=== PATIENT | female | born 1960 | race Caucasian/White ===

== ENCOUNTER 2021-05-22 19:57 | Emergency (ER) | payer MEDICARE, OTHER, SELFPAY ==
[2021-05-22 20:06] VITALS: BP 136/68; PULSE 125; RESP 22; TEMP 36.6; O2SAT 96; BMI 32.5
--- NOTE | 2021-05-22 20:12 | XRR_ITS ---
PROCEDURE INFORMATION: Exam: XR Chest Exam date and time: 05/22/2021 8:12 PM Age: 60 years old Clinical indication: Chest wall pain; Additional info: Cp TECHNIQUE: Imaging protocol: XR of the chest. Views: 1 view. COMPARISON: No relevant prior studies available. FINDINGS: Lungs: Unremarkable. No consolidation. Pleural spaces: Unremarkable. No pleural effusion. No pneumothorax. Heart/Mediastinum: Unremarkable. No cardiomegaly. Bones/joints: Unremarkable. XR/XR chest 1V portable [id number] IMPRESSION: No acute findings.
--- NOTE | 2021-05-22 20:12 | ECG_ITS ---
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 Measurements Intervals [place] Rate: 120 P: 35 NV: 169 QRS: 12 QRSD: 86 T: 31 QT: 315 QTc: 446 Interpretive Statements SINUS TACHYCARDIA LOW QRS VOLTAGE IN PRECORDIAL LEADS [QRS DEFLECTION < 1.0 mV IN CHEST LEADS] POSSIBLE INFERIOR MYOCARDIAL INFARCTION , OF INDETERMINATE AGE [30 ms Q WAVE IN II/aVF] No previous ECG available for comparison Electronically Signed On 05-23-2021 0:04:19 BOX MAKER by Sky Gupta M.D. [id number]
--- NOTE | 2021-05-22 20:31 | CTR_ITS ---
PROCEDURE INFORMATION: Exam: CT Head Without Contrast Exam date and time: 05/22/2021 8:31 PM Age: 60 years old Clinical indication: Numbness / parasthesia and speech disturbance; Left; Additional info: CVA TECHNIQUE: Imaging protocol: Computed tomography of the head without contrast. Radiation optimization: All CT scans at this facility use at least one of these dose optimization techniques: automated exposure control; mA and/or kV adjustment per patient size (includes targeted exams where dose is matched to clinical indication); or iterative reconstruction. COMPARISON: No relevant prior studies available. RADIATION DOSE METRICS: Total DLP (mGy-cm): 808.9 FINDINGS: Brain: Normal. No hemorrhage. Unremarkable white matter. No mass effect. Cerebral ventricles: No ventriculomegaly. Paranasal sinuses: Visualized sinuses are unremarkable. No fluid levels. Mastoid air cells: Visualized mastoid air cells are well aerated. Bones/joints: Unremarkable. No acute fracture. Soft tissues: Unremarkable. CT/CT head wo con* [id number] IMPRESSION: No acute intracranial abnormality.
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
[2021-05-22] MEDS: LORazepam 2 mg/mL INJ 1 mL 0.5 MG IVP (20:36)
[2021-05-22 20:41] VITALS: BP 158/105; PULSE 122; O2SAT 95
[2021-05-22 20:47] LABS: Basophils # 0.1 10^3/uL (0.0-0.1); Basophils % 1.2 %; Eosinophils # 0.1 10^3/uL (0.0-0.8); Eosinophils % 1.6 %; Hematocrit 49.3 % (37.0-47.0); Hemoglobin 16.2 g/dL (11.5-15.3); Lymphocytes # 2.9 10^3/uL (0.8-4.8); Lymphocytes % 39.3 %; Mean Corpuscular HGB Conc 32.9 g/dL (30.0-36.0); Mean Corpuscular Hemoglobin 28.8 pg (28.0-34.0); Mean Corpuscular Volume 87.6 fl (81-99); Mean Platelet Volume 8.8 fL (7.4-10.4); Monocytes # 0.5 10^3/uL (0.2-0.9); Monocytes % 7.4 %; Neutrophils # 3.66 10^3/uL (1.8-7.7); Neutrophils % 50.2 %; Nucleated Red Blood Cells % 0 %; Platelet Count 254 10^3/cmm (130-400); Red Blood Count 5.63 10^6/uL (4.1-5.3); Red Cell Distribution Width 12.3 % (12.1-15.1); White Blood Count 7.3 10^3/uL (4.0-10.0)
[2021-05-22 21:10] LABS: Alanine Aminotransferase 26 U/L (0-33); Albumin Level 4.4 g/dL (3.5-5.2); Alkaline Phosphatase 111 IU/L (35-105); Aspartate Amino Transferase 13 U/L (0-32); Blood Urea Nitrogen 13 mg/dL (6-20); Calcium 8.9 mg/dL (8.5-10.5); Carbon Dioxide 23 mmol/L (22-29); Chloride 95 mmol/L (98-107); Globulin 2.7 g/dL (1.3-4.6); Glomerular Filtration Rate 73.4 mL/min (90-130); Glucose 386 mg/dL (65-115); Osmolality Calculated 290 mOsm/kg (285-295); Sodium 132 mmol/L (136-145); Total Bilirubin 0.4 mg/dL (0.15-1.2); Total Protein 7.1 g/dL (6.6-8.7)
[2021-05-22 21:13] LABS: SARS Covid-2 Antigen Negative (Negative)
[2021-05-22 21:14] LABS: Troponin(5th) Baseline 7 ng/L (0-10)
[2021-05-22 21:26] VITALS: BP 154/89; PULSE 120; O2SAT 95
[2021-05-22 22:11] VITALS: BP 134/113; PULSE 112; O2SAT 95
--- NOTE | 2021-05-22 22:12 | ECG_ITS ---
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 Measurements Intervals [place] Rate: 108 P: 50 IA: 176 QRS: 20 QRSD: 90 T: 44 QT: 332 QTc: 447 Interpretive Statements SINUS TACHYCARDIA LOW QRS VOLTAGE IN PRECORDIAL LEADS [QRS DEFLECTION < 1.0 mV IN CHEST LEADS] ABNORMAL RHYTHM ECG Poor R wave progression Compared to ECG 05/22/2021 20:24:19 Myocardial infarct finding no longer present Electronically Signed On 05-23-2021 0:14:54 MAIL TELLER by Sky Gupta M.D. [id number] f
[2021-05-22 22:45] VITALS: BP 133/77; PULSE 113; O2SAT 92
[2021-05-22 22:58] LABS: Troponin 5 2HR 6.65 ng/L (0-10)
[2021-05-22] MEDS: LORazepam 2 mg/mL INJ 1 mL 1 MG IVP (23:11)
[2021-05-22 23:17] VITALS: BP 123/85; PULSE 100; O2SAT 94
== END 2021-05-22 23:19 | disposition home or self-care (01) ==
PROVIDERS: Emergency Provider Emergency Medicine; PCP Family Medicine
DX: R07.9 Chest pain, unspecified (principal); R20.2 Paresthesia of skin; Z20.822 Contact with and (suspected) exposure to COVID-19
CPT/HCPCS: 70450; 71045; 80053; 84484; 85025; 85610; 87426; 93005; 96374; 96376; 99284; J2060

== ENCOUNTER 2024-03-06 12:11 | Emergency (ER) | payer MEDICARE, SELFPAY ==
[2024-03-06 12:23] VITALS: BP 131/83; PULSE 87; RESP 16; TEMP 36.7; O2SAT 97; BMI 33.1
[2024-03-06 12:25] LABS: Glucose Point of Care 266 mg/dL (70-110)
[2024-03-06 12:55] LABS: Basophils # 0.1 10^3/uL (0.0-0.1); Basophils % 0.7 %; Eosinophils # 0.1 10^3/uL (0.0-0.8); Eosinophils % 1.5 %; Hematocrit 42.2 % (36-47); Lymphocytes # 2.2 10^3/uL (0.8-4.8); Lymphocytes % 32.7 %; Mean Corpuscular HGB Conc 32.9 g/dL (30-55); Mean Corpuscular Hemoglobin 28.6 pg (27-33); Mean Corpuscular Volume 86.8 fl (85-98); Mean Platelet Volume 8.6 fL (7.4-10.4); Monocytes # 0.5 10^3/uL (0.2-0.9); Neutrophils # 3.86 10^3/uL (1.8-7.7); Neutrophils % 57.7 %; Nucleated Red Blood Cells % 0 %; Platelet Count 187 10^3/cmm (157-399); Red Blood Count 4.86 10^6/uL (3.85-5.65); Red Cell Distribution Width 12.6 % (12.1-15.1)
[2024-03-06] MEDS: lactated ringers 1,000 ML 999 ML IV (13:04)
[2024-03-06 13:11] LABS: Alanine Aminotransferase 10 U/L (0-33); Alkaline Phosphatase 88 U/L (35-105); Anion Gap 16.3 (5-19); Aspartate Amino Transferase 12 U/L (0-32); Blood Urea Nitrogen 13 mg/dL (8-23); Calcium 8.2 mg/dL (8.5-10.5); Carbon Dioxide 20 mmol/L (22-29); Chloride 102 mmol/L (98-107); Creatinine Clr Calc Pharmacy 124.9335; Globulin 2.6 g/dL (1.3-4.6); Glucose 269 mg/dL (65-115); Lipase 26 U/L (13-60); Magnesium 1.9 mg/dL (1.7-2.3); Osmolality Calculated 288 mOsm/kg (285-295); Potassium 4.3 mmol/L (3.5-5.1); Sodium 134 mmol/L (136-145); Total Bilirubin 0.5 mg/dL (0.15-1.2); Total Protein 6.6 g/dL (6.6-8.7)
--- NOTE | 2024-03-06 13:11 | ED_ITS ---
HPI - General Adult 2 General: Chief complaint: Headache Stated complaint: 500 blood sugar, headache, generally unwell Time Seen by Provider: 03/06/24 12:38 Source: patient Mode of arrival: ambulatory Limitations: no limitations History of Present Illness: This patient makes her way to the Emergency Department because of elevated blood sugar. She has a history of recent diagnosis of diabetes this year. She is followed by endocrinology. She currently is taking Ozempic as well as Lantus. She states her blood sugar have been elevated and she is not quite sure what to do. She states they have been elevated in the past few days she called her endocrinology office who recommended increasing her Lantus by 2 units nightly and following her blood sugars. She did so last night and then took her Ozempic today but states that she still has considerable thirst and urinating all the time. She also just does not feel her normal energetic self and feels a bit out of sorts. She states she almost feels like she is getting some sort of a viral illness but his not been exposed to any illness that she is aware. She also states that she wonders if she might be getting a urinary tract infection. She does not have any other chronic illnesses and has no other constitutional complaints. She has had a previous tubal ligation as well as a cholecystectomy. Associated symptoms: Deny chest pain, dyspnea, nausea, rash, palpitations, syncope or vomiting Related Data Allergies Allergy/AdvReac Type Severity Reaction Status Date / Time Alpha-Gal Allergy ALGY-Anaphy Verified 03/06/24 12:23 (Fknyhnzbm-Etngs-3,3-Gala laxis Beef Containing Products Allergy ALGY-Anaphy Verified 03/06/24 12:23 laxis Pork/Porcine Containing Allergy ALGY-Anaphy Verified 03/06/24 12:23 Products laxis Review of Systems 2 Const: Denies: fever(s) or chills Eyes: Denies: change in vision ENMT: Denies: throat pain, odynophagia, nasal discharge or nasal congestion Card: Denies: chest pain, palpitations, irregular heart rhythm or syncope Resp: Denies: dyspnea, productive cough or non-productive cough GI: Denies: abdominal pain, nausea, vomiting or diarrhea : Reports: urinary frequency; Denies: flank pain, difficulty voiding or hematuria Musc: Denies: neck pain, back pain, extremity pain or extremity swelling Skin/Breast: Denies: rash or pruritus Neuro: Denies: numbness in extremities or weakness in extremities Psych: Denies: anxiety or depression Endo: Reports: polyuria and polydipsia Randal/Lymph: Denies: easy bruising Physical Exam 2 Narrative: EXAM NARRATIVE: She appears to be in no acute distress makes good eye contact her speech is fluent and answers questions in a goal-directed fashion. Const: COMMON NORMALS: no acute distress, average body habitus, patient oriented x3 and healthy appearing GENERAL APPEARANCE: cooperative N UTRITIONAL APPEARANCE: overweight ORIENTATION/CONSCIOUSNESS: Yes awake HENMT: COMMON NORMALS: normocephalic, Normal nasal mucous membranes and turbinates present, moist oral mucous membranes and oropharynx normal HEAD & SCALP: normocephalic NOSE: Normal nasal mucous membranes and turbinates present Eye: COMMON NORMALS: Equal, round and reactive pupils present, EOMs intact bilaterally and conjunctivae normal CONJUNCTIVA: Yes conjunctivae normal P UPIL: Yes Equal, round and reactive pupils present Neck/C-Spine: COMMON NORMALS: full ROM, no lymphadenopathy and no JVD Resp: COMMON NORMALS: normal respiratory effort, No retractions, No use of accessory muscles and clear to auscultation bilaterally AUSCULTATION: clear to auscultation bilaterally Cardio: COMMON NORMALS: no JVD, regular rate, regular rhythm, No murmurs present (Cardio) and Peripheral pulses 2+ throughout RATE: regular rate R HYTHM: regular rhythm PERIPHERAL PULSES: Peripheral pulses 2+ throughout GI: COMMON NORMALS: Normal to inspection, nondistended, normoactive bowel sounds present, Soft to palpation and non-tender PALPATION: Yes Soft to palpation : COMMON NORMALS: Yes no CVA tenderness BLADDER/KIDNEY EXAM: Yes no CVA tenderness Back/Pelvis: COMMON NORMALS: no CVA tenderness, thoracic and lumbar spine normal to inspection, no thoracic nor lumbar tenderness and thoraco-lumbar ROM normal Extremity: COMMON NORMALS: normal to inspection, full ROM and capillary refill normal Neuro: COMMON NORMALS: patient oriented x3, moves all extremities, no focal motor deficits and no sensory deficits noted CRANIAL NERVES: Yes CN normal except as noted Psych: COMMON NORMALS: mental status grossly normal Skin: COMMON NORMALS: no rashes or lesions noted, no wounds, turgor normal and no jaundice GENERAL SKIN EXAM: no rashes or lesions noted and turgor normal Course 2 Reevaluation(s): Reevaluation #1: The patient is doing well. She has received a liter of fluids vital signs are reassuring. Labs are noted the blood sugar is coming down into a range that is manageable at home and her current regimen. I discussed current findings or implications of both patient and spouse. She is stable at this time to be discharged with her current Lantus management and her Ozempic management. She also needs endocrinology follow-up as well as follow-up with a paraprofessional aide teacher to help her better understand her meal planning for her diabetes. Time: 14:14 Vital Signs: Vital signs: Vital Signs Temperature 98.0 F 03/06/24 12:23 Pulse Rate 87 03/06/24 12:23 Respiratory Rate 16 03/06/24 12:23 Blood Pressure 118/79 03/06/24 14:00 Pulse Oximetry 98 03/06/24 14:00 MDM - General Adult Medical Decision Making This patient presented to the Emergency Department because she was concerned about her blood sugar being elevated and did not know exactly how to approach taking care of that process. She had previously spoken with her endocrinology clinic and they had advised her to a stepwise increase in her Lantus which she did on the first night but is not sure if she should continue to do that or how she should approach her elevated blood sugar. She is currently on Ozempic and Lantus. She just recently was diagnosed with diabetes this past summer. There was no symptoms to suggest other untoward issues such as infection etc. at this time. Laboratories were obtained to ensure that there was no significant evidence of hyperosmolar syndrome, ketoacidosis, urinary tract infection etc. Laboratories were reviewed and were reassuring and she received IV fluids we also had a brief discussion about diabetes and management and need for further follow-up. She is currently clinically stable to be discharged. Lab Data I reviewed the patient's lab results. 03/06/24 12:49 03/06/24 12:49 Laboratory Results WBC 6.70 10^3/uL (3.29-11.43) 03/06/24 12:49 RBC 4.86 10^6/uL (3.85-5.65) 03/06/24 12:49 Hgb 13.90 g/dL (11.27-16.99) 03/06/24 12:49 Hct 42.2 % (36-47) 03/06/24 12:49 MCV 86.8 fl (85-98) 03/06/24 12:49 MCH 28.6 pg (27-33) 03/06/24 12:49 MCHC 32.9 g/dL (30-55) 03/06/24 12:49 RDW 12.6 % (12.1-15.1) 03/06/24 12:49 Plt Count 187 10^3/cmm (157-399) 03/06/24 12:49 MPV 8.6 fL (7.4-10.4) 03/06/24 12:49 Neut % (Auto) 57.7 % 03/06/24 12:49 Lymph % (Auto) 32.7 % 03/06/24 12:49 [place] % (Auto) 7.0 % 03/06/24 12:49 Eos % (Auto) 1.5 % 03/06/24 12:49 Baso % (Auto) 0.7 % 03/06/24 12:49 Neut # (Auto) 3.86 10^3/uL (1.8-7.7) 03/06/24 12:49 Lymph # (Auto) 2.2 10^3/uL (0.8-4.8) 03/06/24 12:49 [place] # (Auto) 0.5 10^3/uL (0.2-0.9) 03/06/24 12:49 Eos # (Auto) 0.1 10^3/uL (0.0-0.8) 03/06/24 12:49 Baso # (Auto) 0.1 10^3/uL (0.0-0.1) 03/06/24 12:49 Nucleated RBC % (auto) 0 % 03/06/24 12:49 Nucleated RBCs # 0.0 /100WBC 03/06/24 12:49 Sodium 134 mmol/L (136-145) L 03/06/24 12:49 Potassium 4.3 mmol/L (3.5-5.1) 03/06/24 12:49 Chloride 102 mmol/L (98-107) 03/06/24 12:49 Carbon Dioxide 20 mmol/L (22-29) L 03/06/24 12:49 Anion Gap 16.3 (5-19) 03/06/24 12:49 BUN 13 mg/dL (8-23) 03/06/24 12:49 Creatinine 0.5 mg/dL (0.5-0.9) 03/06/24 12:49 GFR Calculation 125.0 mL/min (90-130) 03/06/24 12:49 Glucose 269 mg/dL (65-115) H 03/06/24 12:49 POC Glucose 266 mg/dL (70-110) H 03/06/24 12:21 Calculated Osmolality 288 mOsm/kg (285-295) 03/06/24 12:49 Calcium 8.2 mg/dL (8.5-10.5) L 03/06/24 12:49 Magnesium 1.9 mg/dL (1.7-2.3) 03/06/24 12:49 Total Bilirubin 0.5 mg/dL (0.15-1.2) 03/06/24 12:49 AST 12 U/L (0-32) 03/06/24 12:49 ALT 10 U/L (0-33) 03/06/24 12:49 Alkaline Phosphatase 88 U/L (35-105) 03/06/24 12:49 Total Protein 6.6 g/dL (6.6-8.7) 03/06/24 12:49 Albumin 4.0 g/dL (3.5-5.2) 03/06/24 12:49 Globulin 2.6 g/dL (1.3-4.6) 03/06/24 12:49 Lipase 26 U/L (13-60) 03/06/24 12:49 Urine Color Yellow (Yellow) 03/06/24 13:41 Urine Appearance Clear (CLEAR) 03/06/24 13:41 Urine pH 6.0 (5-7) 03/06/24 13:41 Ur Specific [place] 1.031 (1.005-1.030) H 03/06/24 13:41 Urine Protein Negative (Negative) 03/06/24 13:41 Urine Glucose (UA) 3+ (Normal) H 03/06/24 13:41 Urine Ketones 1+ (Negative) H 03/06/24 13:41 Urine Blood Negative (Negative) 03/06/24 13:41 Urine Nitrate Negative (Negative) 03/06/24 13:41 Urine Bilirubin Negative (Negative) 03/06/24 13:41 Urine Urobilinogen 1.0 mg/dL (Negative) 03/06/24 13:41 Ur Leukocyte Esterase Negative (Negative) 03/06/24 13:41 Urine RBC 0-2 /hpf (0-2) 03/06/24 13:41 Urine WBC 0-5 /hpf (0-5) 03/06/24 13:41 Ur Squamous Epith Cells 0-5 /hpf (0-5) 03/06/24 13:41 Amorphous Sediment Not Reportable 03/06/24 13:41 Urine Bacteria None seen /hpf (NONE) 03/06/24 13:41 Hyaline Casts 0.81 /lpf 03/06/24 13:41 No radiology studies performed this visit Discharge Plan Discharge Patient Disposition: Home Clinical Impression: Hyperglycemia due to diabetes mellitus Condition: Stable Discharge Orders: Discharge ED (Routine); Ordered 03/06/24 Ordered By: Jhony Tobar Referrals: Kumar Beltre MD [Primary Care Provider] - Discharge Diet: Diabetic Discharge Activity: Increase activity as tolerated Patient Instructions: Opioid Safety, Pain Management Activity Restrictions/Additional Instructions: Continue your current regimen of Ozempic and Lantus as prescribed. You should take an additional 2 units of Lantus this evening with your evening dose as recommended by your chip unloader. Make sure that you are really eating regular meals on a on a scheduled basis to help reduce fluctuations in blood sugar. Call your chip unloader tomorrow for further instructions. You develop any new or worsening symptoms you are welcome to return to the emergency department for reevaluation. Coding Level of Care Code ED Home Health Care Worker for Sabine Cassidy
[2024-03-06 13:35] VITALS: BP 118/79
[2024-03-06 13:48] LABS: Bilirubin Urine Negative (Negative); Blood Urine Negative (Negative); Glucose Urine UA 3+ (Normal); Ketones Urine 1+ (Negative); Leukocyte Esterase Urine Negative (Negative); Nitrate Urine Negative (Negative); Protein Urine Negative (Negative); Urine Appearance Clear (CLEAR); Urine Color Yellow (Yellow)
[2024-03-06 13:53] LABS: Add Urine Microscopic? YES; Bacteria Urine None Seen /hpf; Hyaline Casts Urine 0.81 /lpf; RBC Urine 0-2 /hpf (0-2); Squamous Epithelial Cell Urine 0-5 /hpf (0-5); WBC Urine 0-5 /hpf (0-5)
[2024-03-06 13:57] LABS: Specific Gravity, Urine 1.031 (1.005-1.030)
[2024-03-06 13:58] LABS: Add Urine Culture? No
[2024-03-06 14:00] VITALS: BP 118/79; O2SAT 98
[2024-03-06 14:26] VITALS: BP 121/74; PULSE 74; O2SAT 97
== END 2024-03-06 14:27 | disposition home or self-care (01) ==
PROVIDERS: Emergency Provider Emergency Medicine; PCP Family Medicine
DX: E11.65 Type 2 diabetes mellitus with hyperglycemia (principal)
CPT/HCPCS: 36415; 36416; 80053; 81001; 82962; 83690; 83735; 85025; 96360; 99284; J7120

== ENCOUNTER 2024-03-19 10:05 | Emergency (ER) | payer MEDICARE, SELFPAY ==
[2024-03-19] VITALS (7 sets, daily range): BP systolic 118–153; BP diastolic 80–99; PULSE 74–88; RESP 15–18; TEMP 36.9; O2SAT 96–99; BMI 37.8
--- NOTE | 2024-03-19 10:25 | XRR_ITS ---
PROCEDURE INFORMATION: Exam: XR Chest Exam date and time: 03/19/2024 10:41 AM Age: 63 years old Clinical indication: Dyspnea; Additional info: Weakness TECHNIQUE: Imaging protocol: Radiologic exam of the chest. Views: 1 view. COMPARISON: CR XR chest 1V portable [id number] 05/22/2021 8:34 PM FINDINGS: Lungs: Unremarkable. No consolidation. Pleural spaces: Unremarkable. No pleural effusion. No pneumothorax. Heart/Mediastinum: Unremarkable. No cardiomegaly. Bones/joints: Moderate degenerative disease of bilateral acromioclavicular joints. Multilevel osteophytes of the thoracic spine. XR/XR chest 1V portable [id number] IMPRESSION: No acute cardiopulmonary process.
--- NOTE | 2024-03-19 10:25 | CTR_ITS ---
PROCEDURE INFORMATION: Exam: CT Head Without Contrast Exam date and time: 03/19/2024 10:47 AM Age: 63 years old Clinical indication: Injury or trauma; Fall; Blunt trauma (contusions or hematomas); Additional info: Fall, head injury TECHNIQUE: Imaging protocol: Computed tomography of the head without contrast. Radiation optimization: All CT scans at this facility use at least one of these dose optimization techniques: automated exposure control; mA and/or kV adjustment per patient size (includes targeted exams where dose is matched to clinical indication); or iterative reconstruction. COMPARISON: CT head wo con* [id number] 05/22/2021 8:52 PM RADIATION DOSE METRICS: Total DLP (mGy-cm): 1077.78 FINDINGS: Brain: Multiple right frontal lobe intraparenchymal hematomas measuring up to 4.2 x 2.4 cm in the cranial medial aspect of the right frontal lobe. There is surrounding vasogenic edema extending to the anterior inferior aspect of the right frontal lobe with mass effect and secondary 1.3 cm [id number] midline shift. No uncal herniation. There is an intraparenchymal hematoma in the splenium of corpus callosum. Cerebral ventricles: Compression of the right lateral ventricle. Paranasal sinuses: Visualized sinuses are unremarkable. No fluid levels. Mastoid air cells: Visualized mastoid air cells are well aerated. Bones: Unremarkable. No acute fracture. Soft tissues: Unremarkable. CT/CT head wo con* [id number] IMPRESSION: Multiple right frontal lobe and corpus callosum intraparenchymal hematomas with extensive surrounding right frontal lobe vasogenic edema and [id number] midline shift estimated at 1.3 cm. Underlying mass cannot be totally excluded and further evaluation with MRI with gadolinium is offered for your consideration.
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
[2024-03-19 11:05] LABS: Basophils % 0.3 %; Eosinophils % 0.2 %; Hematocrit 47.6 % (36-47); Lymphocytes # 1.7 10^3/uL (0.8-4.8); Mean Corpuscular HGB Conc 33.2 g/dL (30-55); Mean Corpuscular Hemoglobin 29.5 pg (27-33); Mean Corpuscular Volume 88.8 fl (85-98); Mean Platelet Volume 8.5 fL (7.4-10.4); Monocytes # 1.1 10^3/uL (0.2-0.9); Monocytes % 9.9 %; Neutrophils # 8.48 10^3/uL (1.8-7.7); Neutrophils % 74.1 %; Nucleated Red Blood Cells % 0 %; Platelet Count 273 10^3/cmm (157-399); Red Blood Count 5.36 10^6/uL (3.85-5.65); Red Cell Distribution Width 12.9 % (12.1-15.1); White Blood Count 11.44 10^3/uL (3.29-11.43)
[2024-03-19 11:22] LABS: Lactic Sepsis W/Reflex 2.3 mmol/L (0.5-2.2)
[2024-03-19 11:23] LABS: Alkaline Phosphatase 103 U/L (35-105); Aspartate Amino Transferase 13 U/L (0-32); Blood Urea Nitrogen 18 mg/dL (8-23); C Reactive Protein 16.6 mg/L (0.0-4.9); Calcium 9.2 mg/dL (8.5-10.5); Carbon Dioxide 23 mmol/L (22-29); Chloride 97 mmol/L (98-107); Creatinine Clr Calc Pharmacy 95.6825; Globulin 3.2 g/dL (1.3-4.6); Glomerular Filtration Rate 84.8 mL/min (90-130); Glucose 303 mg/dL (65-115); Osmolality Calculated 293 mOsm/kg (285-295); Sodium 135 mmol/L (136-145); Total Bilirubin 1.1 mg/dL (0.15-1.2); Total Protein 7.2 g/dL (6.6-8.7)
[2024-03-19 11:33] LABS: Bilirubin Urine Negative (Negative); Blood Urine Negative (Negative); Glucose Urine UA 3+ (Normal); Ketones Urine 3+ (Negative); Leukocyte Esterase Urine Negative (Negative); Nitrate Urine Negative (Negative); Protein Urine 1+ (Negative); Urine Appearance Clear (CLEAR); Urine Color Yellow (Yellow)
[2024-03-19 11:33] LABS: Alanine Aminotransferase 28 U/L (0-33)
[2024-03-19 11:38] LABS: Bacteria Urine None Seen /hpf; RBC Urine 0-2 /hpf (0-2); Squamous Epithelial Cell Urine 0-5 /hpf (0-5); WBC Urine 0-5 /hpf (0-5)
--- NOTE | 2024-03-19 11:38 | PC.PHAR ---
Pt states takes Ketamine 100mg 3 times daily and gets from [facility] in [facility]. Their pharmacy is closed until Thursday.Unable to verify. It is only a verbal from pt a bit confused.
[2024-03-19] MEDS: LORazepam 2 mg/mL INJ 1 mL 0.5 MG IVP (12:02)
[2024-03-19] MEDS: levETIRAcetam 1,000 MG/100 ML PREMIX 400 MG IV (12:02)
[2024-03-19 12:08] LABS: Covid PCR NEGATIVE (Negative); Influenza A NEGATIVE (Negative); Influenza B NEGATIVE (Negative); Respiratory Syncytial Virus Ce NEGATIVE (Negative)
[2024-03-19 12:49] LABS: Reflex Lactate Order REFLEX LACTIC ORDERD
== END 2024-03-19 12:57 | disposition short-term general hospital (02) ==
PROVIDERS: Emergency Provider Emergency Medicine; PCP Family Medicine
DX: T25.022A Burn of unspecified degree of left foot, initial encounter (principal); I61.8 Other nontraumatic intracerebral hemorrhage
CPT/HCPCS: 0241U; 36415; 70450; 71045; 80053; 81001; 83605; 85025; 86140; 87040; 96374; 96375; 99285; J1953; J2060